=== PATIENT | female | born 1975 | race African-American/Black ===

== ENCOUNTER 2017-02-15 05:32 | Emergency (ER) | payer MEDICAID ==
[~2017-02-15] VITALS: Ht 170.2 cm; Wt 80.0 kg
[2017-02-15 06:52] VITALS: BP 118/81
[2017-02-15 07:21] LABS: CLARITY URINE CLEAR (CLEAR); COLOR URINE YELLOW (YELLOW); GLUCOSE URINE NEGATIVE (NEGATIVE); KETONES URINE TRACE (NEGATIVE); LEUKOCYTE ESTERASE URINE NEGATIVE (NEGATIVE); NITRITE URINE NEGATIVE (NEGATIVE); OCCULT BLOOD URINE 3+ (NEGATIVE); PROTEIN URINE NEGATIVE (NEGATIVE)
[2017-02-15 07:22] LABS: BASOPHILS % 0.8 % (0.0-2.0); EOSINOPHILS % 2.8 % (0.0-5.0); HEMATOCRIT. 39.1 % (36.0-48.0); LYMPHOCYTES % 30.3 % (20.0-50.0); MEAN CORPUSCULAR HEMOGLOBIN 30.5 pg (28.0-32.0); MEAN CORPUSCULAR HGB CONC 33.3 g/dL (31.0-37.0); MEAN CORPUSCULAR VOLUME 91.8 fL (81.0-99.0); MEAN PLATELET VOLUME 8.1 fl (7.4-10.4); MONOCYTES % 5.7 % (2.0-8.0); NEUTROPHILS % 60.4 % (40.0-76.0); PLATELET 277 x1000/uL (130-400); RED BLOOD CELL COUNT 4.26 mill/uL (4.2-5.4); RED CELL DISTRIBUTION WIDTH 13.3 % (11.6-14.6); WHITE BLOOD COUNT 5.1 x1000/uL (4.5-11.0)
[2017-02-15 07:37] LABS: ANION GAP 14; B-HCG QUANTITATIVE < 1 mIU/mL (<3); CALCIUM 8.5 mg/dL (8.5-10.1); CARBON DIOXIDE 24 mEq/L (21-32); CHLORIDE 106 mEq/L (98-107); INDEX HEMOLYSI 1 (1-3); INDEX ICTERIC 1 (1-4); INDEX LIPEMIC 1 (1-3); UREA NITROGEN BLOOD 15 mg/dL (7-21); eGFR > 60 mL/min (>60)
[2017-02-15 07:40] LABS: BACTERIA URINE TRACE; RBC URINE 50-100 /hpf (0-2); SQUAMOUS EPITHELIAL CELL URINE FEW /lpf (RARE/1+)
[2017-02-15 07:41] LABS: WBC URINE 0-2 /hpf (0-2)
== END 2017-02-15 09:07 | disposition home or self-care (01) ==
LOC: ER 07:34
DX: N93.9 Abnormal uterine and vaginal bleeding, unspecified (principal); Z98.890 Other specified postprocedural states
CPT/HCPCS: 36415; 80048; 81001; 81025; 84702; 85025; 86850; 86900; 93005; 99285

== ENCOUNTER 2017-07-14 09:02 | Emergency (ER) | payer MEDICAID ==
[~2017-07-14] VITALS: Ht 167.6 cm; Wt 82.0 kg
[2017-07-14 10:13] VITALS: BP 132/91
== END 2017-07-14 11:03 | disposition left against medical advice (07) ==
LOC: ER 09:02
DX: R30.0 Dysuria (principal); R31.9 Hematuria, unspecified; Z53.21 Procedure and treatment not carried out due to patient leaving prior to being seen by health care provider
CPT/HCPCS: 81025

== ENCOUNTER 2018-07-05 09:41 | Emergency (ER) | payer MEDICAID ==
[~2018-07-05] VITALS: Ht 167.6 cm; Wt 82.0 kg
[2018-07-05 10:46] LABS: CLARITY URINE CLEAR (CLEAR); COLOR URINE YELLOW (YELLOW); KETONES URINE NEGATIVE (NEGATIVE); LEUKOCYTE ESTERASE URINE NEGATIVE (NEGATIVE); NITRITE URINE NEGATIVE (NEGATIVE); OCCULT BLOOD URINE NEGATIVE (NEGATIVE); PROTEIN URINE NEGATIVE (NEGATIVE); SPECIFIC GRAVITY URINE 1.018 (1.005-1.030); UROBILINOGEN URINE 0.2 E.U./dL (0.2-1.0)
[2018-07-05 11:38] LABS: HCG SCREEN NEGATIVE
[2018-07-05 12:30] VITALS: BP 124/79
== END 2018-07-05 13:02 | disposition home or self-care (01) ==
LOC: ER 09:50
DX: Z32.02 Encounter for pregnancy test, result negative (principal); Z88.5 Allergy status to narcotic agent; Z98.890 Other specified postprocedural states
CPT/HCPCS: 36415; 81003; 81025; 84702; 84703; 99284

== ENCOUNTER 2020-12-27 10:12 | Emergency (ER) | payer MEDICAID ==
[~2020-12-27] VITALS: Ht 172.7 cm; Wt 77.0 kg
[2020-12-27] MEDS ORDERED: IBUP-2029 MT (10:54)
[2020-12-27] MEDS ORDERED: IBUPROFEN 600MG TABLET PO ONE (11:00)
[2020-12-27 12:12] VITALS: BP 135/79
== END 2020-12-27 12:13 | disposition home or self-care (01) ==
LOC: ER 10:12
DX: M54.2 Cervicalgia (principal)
CPT/HCPCS: 99282